=== PATIENT | male | born 1945 | race Two or more races ===

== ENCOUNTER 2018-08-06 02:18 | Emergency (ER) | payer MEDICARE ==
[~2018-08-06] VITALS: Ht 165.1 cm; Wt 98.0 kg
[2018-08-06 04:08] LABS: CHLORIDE 111 mEq/L (98-107)
[2018-08-06 04:27] LABS: BASOPHILS % 0.4 % (0.0-2.0); EOSINOPHILS % 0.4 % (0.0-5.0); HEMATOCRIT. 36.1 % (42.0-52.0); HEMOGLOBIN. 11.6 g/dL (14.0-18.0); LYMPHOCYTES % 10.5 % (20.0-50.0); MEAN CORPUSCULAR HEMOGLOBIN 30.1 pg (28.0-32.0); MEAN PLATELET VOLUME 9.1 fl (7.4-10.4); MONOCYTES % 4.5 % (2.0-8.0); NEUTROPHILS % 84.2 % (40.0-76.0); PLATELET 212 x1000/uL (130-400); RED BLOOD CELL COUNT 3.84 mill/uL (4.7-6.1); RED CELL DISTRIBUTION WIDTH 15.5 % (11.6-14.6)
[2018-08-06 06:23] VITALS: BP 141/51
== END 2018-08-06 06:29 | disposition home or self-care (01) ==
LOC: EDBD 02:18 → ER 02:18
DX: E11.649 Type 2 diabetes mellitus with hypoglycemia without coma (principal); I25.10 Atherosclerotic heart disease of native coronary artery without angina pectoris; Z94.1 Heart transplant status; Z79.4 Long term (current) use of insulin
CPT/HCPCS: 36415; 71045; 80048; 82962; 84484; 93005; 99284